=== PATIENT | male | born 1995 | race Two or more races ===

== ENCOUNTER 2020-08-31 12:02 | Emergency (ER) | payer SELFPAY ==
[~2020-08-31] VITALS: Ht 177.8 cm; Wt 65.9 kg
[2020-08-31 13:04] VITALS: BP 142/90
--- NOTE | 2020-08-31 13:14 | PHYS DOC ---
General Adult EDM: Chief Complaint: UPPER EXTREMITY PAIN HPI: HPI: Patient is a 24 year old male who presents with patient was playing soccer yesterday when he fell and then wrote down the staircase. He has a abrasion to his right flank, abrasion to the right shoulder. He is complaining of right shoulder pain and stiffness and elbow pain. He rates his aching nonradiating pain a 4 out of 10. He states he took Tylenol prior to coming. He denies any numbness or tingling, focal weakness, coolness of the extremity. Review of Systems: Review of Systems: Constitutional: Denies fever or chills. [] Eyes: Denies change in visual acuity. [] HENT: Denies nasal congestion or sore throat. [] Respiratory: Denies cough or shortness of breath. [] Cardiovascular: Denies chest pain or edema. [] GI: Denies abdominal pain, nausea, vomiting, bloody stools or diarrhea. [] : Denies dysuria. [] Musculoskeletal: Denies back pain or + right shoulder joint pain, + right elbow joint pain. [] Integument: Denies rash. + Abrasion to right flank area, + abrasion to right shoulder [] Neurologic: Denies headache, focal weakness or sensory changes. [] Endocrine: Denies polyuria or polydipsia. [] Lymphatic: Denies swollen glands. [] Psychiatric: Denies depression or anxiety. [] Heart Score: Risk Factors: Risk Factors: DM, Current or recent (<one month) smoker, HTN, HLP, family history of CAD, obesity. Risk Scores: Score 0 - 3: 2.5% MACE over next 6 weeks - Discharge Home Score 4 - 6: 20.3% MACE over next 6 weeks - Admit for Clinical Observation Score 7 - 10: 72.7% MACE over next 6 weeks - Early Invasive Strategies Allergies: Allergies: Allergies Coded Allergies Type Severity Reaction Last Updated Verified No Known Drug Allergies 08/31/20 No Physical Exam: PE: Constitutional: Well developed, well nourished, no acute distress, non-toxic a ppearance. [] HENT: Normocephalic, atraumatic, bilateral external ears normal, oropharynx moist, no oral exudates, nose normal. [] Eyes: PERRLA, EOMI, conjunctiva normal, no discharge. [] Neck: Normal range of motion, no tenderness, supple, no stridor. [] Cardiovascular:Heart rate regular rhythm, no murmur [] Lungs & Thorax: Bilateral breath sounds clear to auscultation [] Abdomen: Bowel sounds normal, soft, no tenderness, no masses, no pulsatile masses. [] Skin: Warm, dry, no erythema, no rash. Right posterior rib abrasion. Right shoulder abrasion. [] Back: No tenderness, no CVA tenderness. [] Extremities: No tenderness, no cyanosis, no clubbing, ROM intact, no edema. [] Neurologic: Alert and oriented X 3, normal motor function, normal sensory function, no focal deficits noted. [] Psychologic: Affect normal, judgement normal, mood normal. [] EKG: EKG: [] Radiology/Procedures: Radiology/Procedures: [] Impression: [facility] [address] [place] [address] IMAGING REPORT Signed PATIENT: CELIA DUNCANUNT: [id number] : 1995 LOCATION: ER AGE: 24 SEX: M EXAM STATUS: REG ER ORD. PHYSICIAN: CHELITA STEWART APRN REASON: fall, pain PROCEDURE: RIBS RIGHT AND PA CHEST Exam performed:Right rib series including single view chest, right shoulder and right elbow Indication: Pain, status post fall Date of service: 08/31/2020. Comparison:None available. Findings: Single view chest and right rib series is obtained. The heart and mediastinal structures are normal. Pneumonia, pneumothorax or pleural effusion are not present. No rib fractures identified. Single AP view of the right shoulder in internal and external rotation and Y view is obtained. Normal alignment of the shoulder joint is preserved. There is no acute fracture or dislocation. No soft tissue swelling or foreign body seen. AP, lateral and oblique views of the right elbow is obtained. Normal alignment is preserved. There is no acute fracture or dislocation. There is density in the soft tissues of the right elbow the lower aspect which could represent a foreign body on the skin or soft tissues. IMPRESSION: 1. No acute cardiopulmonary process seen. No definite rib fractures 2. No acute abnormality seen in the right shoulder. 3. Possible foreign body on the skin or soft tissues in the right elbow. Electronically signed by: Nela Edwards MD (08/31/2020 1:39 PM) [id number] DICTATED and SIGNED BY: NELA EDWARDS MD DATE: 08/31/20 [id number] 0 Course & Med Decision Making: Course & Med Decision Making Pertinent Labs and Imaging studies reviewed. (See chart for details) See HPI. Speaks in full complete sentences. Ambulatory with steady gait. Patient does have range of motion in the shoulder and in the elbow but states it is painful. Patient states his posterior ribs are slightly tender but states they are not really bothering him. He states that he does not have any shortness of breath. There is no crepitus, deformity or subcutaneous emphysema felt with palpation over rib cage. Lungs are clear to auscultation all lobes. Vital signs within normal limits. No joint laxity or deformities. No joint swelling. Radial pulse strong and present. Skin pink warm and dry. Cap refill less than 2 seconds. Patient denies hitting his head, syncope, dizziness, headache, neck pain, back pain. No focal bony spinal tenderness pain. Full range of motion of the neck. Alert and oriented x4. [place]-speaking and i nterpreter phone is used. X-ray showed no acute findings but states that there could be a possible foreign body in the elbow of the patient. There is no abrasion at the elbow or any thing that looks like a foreign body. Follow-up with your primary care provider if needed. [] Treva Disclaimer: Treva Disclaimer: This electronic medical record was generated, in whole or in part, using a voice recognition dictation system. Departure Departure Impression: Primary Impression: Fall Qualified Codes: W19.XXXA - Unspecified fall, initial encounter Additional Impressions: Shoulder pain, right Qualified Codes: M25.511 - Pain in right shoulder Elbow pain, right Rib pain on right side Disposition: 01 DC HOME SELF CARE/HOMELESS Condition: STABLE Referrals: NO PCP (PCP) Patient Instructions: Abrasions, Elbow Contusion, Incentive Spirometer, Rib Contusion, Shoulder Sprain Additional Instructions: Follow-up with an orthopedic or primary care physician. Take ibuprofen or Tylenol for your pain. Also try using ice and or a heating pad. CHELITA STEWART APRN Aug 31, 2020 13:14
[2020-08-31] MEDS ORDERED: DIPH,PERTUSS(ACELL),TET VAC/PF 0.5 ML SYRINGE. VAX IM ONE (13:15)
--- NOTE | 2020-08-31 13:42 | RAD ---
Exam performed:Right rib series including single view chest, right shoulder and right elbow Indication: Pain, status post fall Date of service: 08/31/2020. Comparison:None available. Findings: Single view chest and right rib series is obtained. The heart and mediastinal structures are normal. Pneumonia, pneumothorax or pleural effusion are not present. No rib fractures identified. Single AP view of the right shoulder in internal and external rotation and Y view is obtained. Normal alignment of the shoulder joint is preserved. There is no acute fracture or dislocation. No soft tis cori swelling or foreign body seen. AP, lateral and oblique views of the right elbow is obtained. Normal alignment is preserved. There is no acute fracture or dislocation. There is density in the soft tissues of the right elbow the lower aspect which could represent a foreign body on the skin or soft tissues. IMPRESSION: 1. No acute cardiopulmonary process seen. No definite rib fractures 2. No acute abnormality seen in the right shoulder. 3. Possible foreign body on the skin or soft tissues in the right elbow. Electronically signed by: Nela Edwards MD (08/31/2020 1:39 PM) [id number]
== END 2020-08-31 14:34 | disposition home or self-care (01) ==
LOC: ER 12:02
DX: S40.011A Contusion of right shoulder, initial encounter (principal); R07.81 Pleurodynia; M25.521 Pain in right elbow; W18.39XA Other fall on same level, initial encounter; Y93.66 Activity, soccer; Y92.89 Other specified places as the place of occurrence of the external cause; Y99.8 Other external cause status
CPT/HCPCS: 71101; 73030; 73080; 90471; 90715; 99284; A4565